=== PATIENT | male | born 1940 | race Caucasian/White ===

== ENCOUNTER 2016-11-25 13:47 | Outpatient (CLI) | payer MEDICARE, OTHER | END 2016-11-25 13:48 | disposition home or self-care (01) | DX: I10 Essential (primary) hypertension (principal); E11.22 Type 2 diabetes mellitus with diabetic chronic kidney disease; E78.5 Hyperlipidemia, unspecified ==

== ENCOUNTER 2017-02-16 13:58 | Outpatient (CLI) | payer MEDICARE, OTHER ==
[2017-02-16 17:59] LABS: CALCIUM 10.2 mg/dL (8.5-10.3); CREATININE 1.3 mg/dL (0.6-1.2)
[2017-02-16 18:22] LABS: HEMOGLOBIN A1C 0.7 g/dL
== END 2017-02-16 13:59 | disposition home or self-care (01) ==
LOC: LAB.F 13:58
PROVIDERS: ATTEND Internal Medicine
DX: E11.40 Type 2 diabetes mellitus with diabetic neuropathy, unspecified (principal); I10 Essential (primary) hypertension
CPT/HCPCS: 36415; 80048; 83036

== ENCOUNTER 2017-06-22 14:27 | Outpatient (CLI) | payer MEDICARE, OTHER ==
[2017-06-22 18:08] LABS: HEMOGLOBIN A1C 0.63 g/dL
[2017-06-22 18:11] LABS: CALCIUM 9.3 mg/dL (8.5-10.3); CREATININE 1.3 mg/dL (0.6-1.2); POTASSIUM 3.5 mmol/L (3.5-5.0)
== END 2017-06-22 14:28 | disposition home or self-care (01) ==
LOC: LAB.F 14:27
PROVIDERS: ATTEND Internal Medicine
DX: E11.40 Type 2 diabetes mellitus with diabetic neuropathy, unspecified (principal); N18.3 Chronic kidney disease, stage 3 (moderate)
CPT/HCPCS: 36415; 80048; 82043; 82570; 83036

== ENCOUNTER 2017-12-10 08:43 | Outpatient (CLI) | payer MEDICARE, OTHER ==
[2017-12-10 18:12] LABS: ALBUMIN 4.3 g/dL (3.2-5.5); ALKALINE PHOSPHATASE 40 IU/L (42-121); ALT ALANINE AMINOTRANSFERASE 14 IU/L (10-60); AST ASPARTATE AMINOTRANSFERASE 19 IU/L (10-42); BILIRUBIN,TOTAL 0.7 mg/dL (0.2-1.0); BUN - BLOOD UREA NITROGEN 24 mg/dL (6-20); CALCIUM 9.3 mg/dL (8.5-10.3); CARBON DIOXIDE - CO2 25 mmol/L (21-32); CHLORIDE 103 mmol/L (101-111); CHOL/HDL RATIO 2.6 (<5.0); CHOLESTEROL 126 mg/dL; CREATININE 1.4 mg/dL (0.6-1.2); GFR - MDRD 49 (>89); GLUCOSE 165 mg/dL (70-100); HDL CHOLESTEROL 49 mg/dL; LDL CHOLESTEROL,CALCULATED 63 mg/dL; LDL/HDL RATIO 1.3 (<3.6); SODIUM 137 mmol/L (135-145); TOTAL PROTEIN 6.5 g/dL (6.7-8.2); VLDL CHOLESTEROL 14 mg/dL
[2017-12-10 18:37] LABS: HB2 TOTAL 15.3 g/dL; HEMOGLOBIN A1C 0.66 g/dL; HEMOGLOBIN A1C % 6.1 % (4.6-6.2)
== END 2017-12-10 08:44 | disposition home or self-care (01) ==
LOC: LAB.F 08:43
PROVIDERS: ATTEND Physician Assistant Medical
DX: I12.9 Hypertensive chronic kidney disease with stage 1 through stage 4 chronic kidney disease, or unspecified chronic kidney disease (principal); N18.3 Chronic kidney disease, stage 3 (moderate); E78.00 Pure hypercholesterolemia, unspecified; E11.40 Type 2 diabetes mellitus with diabetic neuropathy, unspecified; E11.22 Type 2 diabetes mellitus with diabetic chronic kidney disease
CPT/HCPCS: 36415; 80053; 80061; 83036; 83721

== ENCOUNTER 2017-12-14 08:00 | Outpatient (CLI) | payer MEDICARE, OTHER ==
[2017-12-14 17:53] LABS: CREATININE,URINE 81.8 mg/dL; MICROALBUM/CREATININE RATIO,UR 30.6 ug/mg (<30.0); MICROALBUMIN,URINE 2.5 mg/dL (0-300.0)
== END 2017-12-14 08:01 | disposition home or self-care (01) ==
LOC: LAB.R 08:00
PROVIDERS: ATTEND Physician Assistant Medical
DX: E11.22 Type 2 diabetes mellitus with diabetic chronic kidney disease (principal)
CPT/HCPCS: 82043; 82570

== ENCOUNTER 2018-07-18 09:16 | Outpatient (CLI) | payer MEDICARE, OTHER ==
[2018-07-18 18:12] LABS: CALCIUM 9.6 mg/dL (8.5-10.3); CREATININE 1.3 mg/dL (0.6-1.2)
[2018-07-18 18:47] LABS: HB2 TOTAL 15.4 g/dL; HEMOGLOBIN A1C 0.66 g/dL; HEMOGLOBIN A1C % 6.1 % (4.6-6.2)
== END 2018-07-18 09:17 | disposition home or self-care (01) ==
LOC: LAB.F 09:16
PROVIDERS: ATTEND Physician Assistant Medical
DX: E11.40 Type 2 diabetes mellitus with diabetic neuropathy, unspecified (principal)
CPT/HCPCS: 36415; 80048; 83036

== ENCOUNTER 2019-01-26 08:06 | Outpatient (CLI) | payer MEDICARE ==
[2019-01-26 11:39] LABS: ALBUMIN 4.1 g/dL (3.2-5.5); ALBUMIN/GLOBULIN RATIO 1.7 (1.0-2.2); BILIRUBIN,TOTAL 1.1 mg/dL (0.2-1.0); CALCIUM 8.9 mg/dL (8.5-10.3); CREATININE 1.2 mg/dL (0.6-1.2); TOTAL PROTEIN 6.5 g/dL (6.7-8.2)
[2019-01-26 11:40] LABS: BASOPHILS % (AUTO) 0.8 %; EOSINOPHILS # (AUTO) 0.1 10^3/uL (0.0-0.7); EOSINOPHILS % (AUTO) 2.4 %; HGB - HEMOGLOBIN 14.4 g/dL (14.0-18.0); LYMPHOCYTES # (AUTO) 0.8 10^3/uL (1.5-3.5); LYMPHOCYTES % (AUTO) 20.8 %; MEAN CORPUSCULAR HGB CONC 34.1 g/dL (32.0-36.0); MEAN CORPUSCULAR VOLUME 93.9 fL (80.0-94.0); MEAN PLATELET VOLUME 9.3 fL (7.4-11.4); MONOCYTES # (AUTO) 0.4 10^3/uL (0.0-1.0); MONOCYTES % (AUTO) 9.7 %; NEUTROPHILS # (AUTO) 2.6 10^3/uL (1.5-6.6); NEUTROPHILS % (AUTO) 66.3 %; PLT - PLATELET COUNT 170 10^3/uL (130-450); RED BLOOD COUNT 4.49 10^6/uL (4.70-6.10); RED CELL DISTRIBUTION WIDTH 13.3 % (12.0-15.0)
== END 2019-01-26 08:07 | disposition home or self-care (01) ==
LOC: LAB.F 08:06
PROVIDERS: ATTEND Physician Assistant Medical
DX: R25.2 Cramp and spasm (principal); Z51.81 Encounter for therapeutic drug level monitoring
CPT/HCPCS: 36415; 80053; 83735; 85025

== ENCOUNTER 2019-01-27 13:49 | Outpatient (CLI) | payer MEDICARE ==
--- NOTE | 2019-01-27 15:22 | XRAY Report ---
Reason: BACK PAIN,LUMBAR,W/RADICULOPATHY Procedure Date: 01/27/2019 Accession Number: [id number] / [id number] Procedure: XR - Lumbar Spine Complete CPT Code: FULL RESULT: EXAM: LUMBOSACRAL SPINE RADIOGRAPHY EXAM DATE: 01/27/2019 02:50 PM. CLINICAL HISTORY: Lumbar back pain with radiculopathy. COMPARISONS: None. TECHNIQUE: 2 views. FINDINGS: Alignment: There are 5 mm of anterolisthesis of L4-L5. No significant scoliosis. Bones: Five [id number]-[id number] lumbar vertebral bodies are present. No fractures or bone lesions. Disks: There are mild endplate changes at L2-L3 and minimal endplate changes at L3-L4. Facets: Moderate facet arthropathy is seen predominantly at L4 and L5. Sacroiliac Joints: Unremarkable. Soft Tissues: Atherosclerotic disease of the aortoiliac vessels is noted. IMPRESSION: Anterolisthesis of L4 on L5 with degenerative changes. Atherosclerotic disease. RADIA
== END 2019-01-27 13:50 | disposition home or self-care (01) ==
LOC: DI 13:49
PROVIDERS: ATTEND Physician Assistant Medical
DX: M51.36 Other intervertebral disc degeneration, lumbar region (principal); M47.9 Spondylosis, unspecified; M43.16 Spondylolisthesis, lumbar region; I70.0 Atherosclerosis of aorta
CPT/HCPCS: 72110

== ENCOUNTER 2019-08-28 09:24 | Outpatient (CLI) | payer MEDICARE ==
[2019-08-28 17:43] LABS: BASOPHILS % (AUTO) 0.7 %; EOSINOPHILS # (AUTO) 0.1 10^3/uL (0.0-0.7); EOSINOPHILS % (AUTO) 2.4 %; LYMPHOCYTES # (AUTO) 1.1 10^3/uL (1.5-3.5); LYMPHOCYTES % (AUTO) 20.5 %; MEAN CORPUSCULAR HEMOGLOBIN 32.3 pg (27.0-31.0); MEAN CORPUSCULAR HGB CONC 33.4 g/dL (32.0-36.0); MEAN CORPUSCULAR VOLUME 96.5 fL (80.0-94.0); MONOCYTES # (AUTO) 0.6 10^3/uL (0.0-1.0); MONOCYTES % (AUTO) 11.7 %; NEUTROPHILS # (AUTO) 3.5 10^3/uL (1.5-6.6); NEUTROPHILS % (AUTO) 64.5 %; PLT - PLATELET COUNT 174 10^3/uL (130-450); RED BLOOD COUNT 4.34 10^6/uL (4.70-6.10); RED CELL DISTRIBUTION WIDTH 12.4 % (12.0-15.0); WHITE BLOOD COUNT 5.4 x10^3/uL (4.8-10.8)
[2019-08-28 18:35] LABS: ALBUMIN 4.3 g/dL (3.2-5.5); ALBUMIN/GLOBULIN RATIO 1.9 (1.0-2.2); ALKALINE PHOSPHATASE 41 IU/L (42-121); ALT ALANINE AMINOTRANSFERASE 18 IU/L (10-60); AST ASPARTATE AMINOTRANSFERASE 20 IU/L (10-42); BILIRUBIN,TOTAL 0.8 mg/dL (0.2-1.0); BUN - BLOOD UREA NITROGEN 24 mg/dL (6-20); CARBON DIOXIDE - CO2 27 mmol/L (21-32); CHLORIDE 101 mmol/L (101-111); CHOL/HDL RATIO 2.1 (<5.0); CHOLESTEROL 123 mg/dL; CREATININE 1.4 mg/dL (0.6-1.2); GFR - MDRD 49 (>89); GLUCOSE 148 mg/dL (70-100); HDL CHOLESTEROL 60 mg/dL; SODIUM 138 mmol/L (135-145); TOTAL PROTEIN 6.6 g/dL (6.7-8.2)
== END 2019-08-28 09:25 | disposition home or self-care (01) ==
LOC: LAB.S 09:24
PROVIDERS: ATTEND Physician Assistant Medical
DX: E11.22 Type 2 diabetes mellitus with diabetic chronic kidney disease (principal); I12.9 Hypertensive chronic kidney disease with stage 1 through stage 4 chronic kidney disease, or unspecified chronic kidney disease; N18.9 Chronic kidney disease, unspecified; E78.00 Pure hypercholesterolemia, unspecified
CPT/HCPCS: 36415; 80053; 80061; 83721; 85025

== ENCOUNTER 2019-09-19 14:20 | Outpatient (CLI) | payer MEDICARE ==
[2019-09-19 17:49] LABS: CREATININE,URINE 52.4 mg/dL; MICROALBUM/CREATININE RATIO,UR 74.4 ug/mg (<30.0); MICROALBUMIN,URINE 3.9 mg/dL (0-300.0)
[2019-09-19 17:56] LABS: BUN - BLOOD UREA NITROGEN 24 mg/dL (6-20); CALCIUM 9.6 mg/dL (8.5-10.3); CARBON DIOXIDE - CO2 26 mmol/L (21-32); CHLORIDE 96 mmol/L (101-111); CREATININE 1.2 mg/dL (0.6-1.2); GFR - MDRD 58 (>89); GLUCOSE 128 mg/dL (70-100); SODIUM 132 mmol/L (135-145)
[2019-09-19 17:57] LABS: CRP - C-REACTIVE PROTEIN < 1.0 mg/dL (0-1.0)
[2019-09-19 18:14] LABS: HB2 TOTAL 14.4 g/dL; HEMOGLOBIN A1C 0.63 g/dL; HEMOGLOBIN A1C % 6.2 % (4.6-6.2)
== END 2019-09-19 14:21 | disposition home or self-care (01) ==
LOC: LAB.S 14:20
PROVIDERS: ATTEND Physician Assistant Medical
DX: E11.22 Type 2 diabetes mellitus with diabetic chronic kidney disease (principal); N18.3 Chronic kidney disease, stage 3 (moderate); R25.2 Cramp and spasm; M54.16 Radiculopathy, lumbar region
CPT/HCPCS: 36415; 80048; 82043; 82570; 83036; 85651; 86140

== ENCOUNTER 2019-10-24 13:48 | Outpatient (CLI) | payer MEDICARE ==
[2019-10-24 18:11] LABS: MICROALBUMIN,URINE 2.6 mg/dL (0-300.0)
[2019-10-24 18:12] LABS: CALCIUM 9.1 mg/dL (8.5-10.3); CREATININE 1.2 mg/dL (0.6-1.2)
== END 2019-10-24 13:49 | disposition home or self-care (01) ==
LOC: LAB.S 13:48
PROVIDERS: ATTEND Physician Assistant Medical
DX: N18.3 Chronic kidney disease, stage 3 (moderate) (principal)
CPT/HCPCS: 36415; 80048; 82043; 82570

== ENCOUNTER 2019-11-23 15:34 | Outpatient (CLI) | payer MEDICARE ==
--- NOTE | 2019-12-05 11:14 | DEXA Report ---
Reason: WEDGE COMPRESSION FRACTURE OF UNSP LUMBAR VERTEBRA Procedure Date: 11/23/2019 Accession Number: [id number] / [id number] Procedure: DEX - Dexa Spine and/or Hip CPT Code: Final Report FULL RESULT: EXAM: Dexa Spine and/or Hip DATE: 11/23/2019 4:10 PM CLINICAL HISTORY: WEDGE COMPRESSION FRACTURE OF UNSP LUMBAR VERTEBRA TECHNIQUE: Dual energy x-ray absorptiometry (DXA) was performed on a [employer] System. Regions measured are the AP Spine, femoral neck, and if needed forearm. COMPARISON: None. In accordance with the International Society for Clinical Densitometry (ISCD) guidelines, data from previous exams may be reanalyzed using current recommendations and techniques. This is done to allow a more accurate basis for comparison with the current study. FINDINGS: The data for the lumbar spine is as follows: BMD (g/cm/cm) T-SCORE Z-SCORE REGION L1 1.283 1.0 1.3 L2 1.440 1.7 2.0 L3 1.404 1.4 1.7 L4 1.495 2.1 2.4 TOTAL 1.412 1.6 1.9 NOTE: All evaluable vertebrae are used for classification The data for the hip is as follows: BMD (g/cm/cm) T-SCORE Z-SCORE REGION Neck 1.089 0.1 1.4 TOTAL 1.239 1.0 1.9 NOTE: The femoral neck or total proximal femur, whichever is lowest, is used for classification. IMPRESSION: THE WHO CLASSIFICATION BASED ON THE INTERNATIONAL REFERENCE STANDARD IS NORMAL. THE FRACTURE RISK IS NOT INCREASED. RECOMMENDATION: Patients with diagnosis of osteoporosis or osteopenia should have regular bone mineral density assessment. For those eligible for Medicare, routine testing is allowed once every 2 years. Testing frequency can be increased for patients who have rapidly progressing disease or for those who are receiving medical therapy to restore bone mass. COMMENT: World Health Organization (WHO) definitions for osteoporosis and osteopenia: NORMAL BMD: T-score at -1.0 or higher, fracture risk is low OSTEOPENIA BMD: T-score between -1.0 and -2.5, fracture risk is increased. OSTEOPOROSIS BMD: T-score at -2.5 or lower, fracture risk is high. National Osteoporosis Foundation recommends: 1. Obtain adequate dietary calcium (at least 1200 mg per day) and vitamin D (400-800 international units per day). 2. Participate, as appropriate, in regular weightbearing and muscle-strengthening exercise. 3. Avoid tobacco use and reduce alcohol and caffeine intake. 4. For more detailed information see the website at www.NOF.org.
== END 2019-11-23 15:35 | disposition home or self-care (01) ==
LOC: DI 15:34
PROVIDERS: ATTEND Physician Assistant Medical
DX: S32.000A Wedge compression fracture of unspecified lumbar vertebra, initial encounter for closed fracture (principal)
CPT/HCPCS: 77080

== ENCOUNTER 2019-12-15 12:42 | Outpatient (CLI) | payer MEDICARE ==
--- NOTE | 2019-12-16 11:12 | XRAY Report ---
Reason: KNEE JOINT PAIN,GREATER THAN 3 MO,BILAT Procedure Date: 12/15/2019 Accession Number: [id number] / [id number] Procedure: XR - Knee 3 View BILAT CPT Code: Final Report FULL RESULT: EXAM: BILATERAL KNEE RADIOGRAPHY EXAM DATE: 12/15/2019 01:00 PM. CLINICAL HISTORY: Knee joint pain, greater than 3 mo, bilateral. COMPARISON: None available. TECHNIQUE: 3 views each knee. FINDINGS: Right: Bones: The bones appear intact without evidence of a fracture. Joints: Joint alignment is normal. No joint effusion. The joint spaces appear preserved. Minor degenerative spurring, mostly in the patellofemoral compartment. Soft Tissues: Vascular calcifications are present. No soft tissue swelling. Left: Bones: The bones appear intact without evidence of a fracture. Joints: There is a trace suprapatellar joint effusion. The joint spaces appear preserved. There is minor degenerative patellofemoral and medial compartment spurring. Normal joint alignment. Soft Tissues: Vascular calcifications are present. No soft tissue swelling. IMPRESSION: Minor degenerative changes in both knees. Right: Kellgren Caio Grade 1. Left: Kellgren Caio Grade 1. Kellgren and Caio classification of osteoarthritis: Grade 0: no radiographic features of osteoarthritis are present Grade 1: doubtful joint space narrowing (JSN) and possible osteophytic lipping Grade 2: definite osteophytes and possible JSN on anteroposterior weight-bearing radiograph Grade 3: multiple osteophytes, definite JSN, sclerosis, possible bony deformity Grade 4: large osteophytes, marked JSN, severe sclerosis and definite bony deformity RADIA
== END 2019-12-15 12:43 | disposition home or self-care (01) ==
LOC: DI 12:42
PROVIDERS: ATTEND Physician Assistant Medical
DX: M17.0 Bilateral primary osteoarthritis of knee (principal)

== ENCOUNTER 2020-09-10 08:44 | Outpatient (CLI) | payer MEDICARE ==
[2020-09-10 15:16] LABS: BASOPHILS % (AUTO) 0.7 %; EOSINOPHILS # (AUTO) 0.1 10^3/uL (0.0-0.7); EOSINOPHILS % (AUTO) 2.1 %; HGB - HEMOGLOBIN 12.6 g/dL (14.0-18.0); LYMPHOCYTES # (AUTO) 1.2 10^3/uL (1.5-3.5); LYMPHOCYTES % (AUTO) 26.6 %; MEAN CORPUSCULAR HEMOGLOBIN 32.6 pg (27.0-31.0); MEAN CORPUSCULAR HGB CONC 33.3 g/dL (32.0-36.0); MEAN CORPUSCULAR VOLUME 97.7 fL (80.0-94.0); MEAN PLATELET VOLUME 10.4 fL (7.4-11.4); MONOCYTES # (AUTO) 0.5 10^3/uL (0.0-1.0); MONOCYTES % (AUTO) 10.4 %; NEUTROPHILS # (AUTO) 2.6 10^3/uL (1.5-6.6); PLT - PLATELET COUNT 188 10^3/uL (130-450); RED BLOOD COUNT 3.87 10^6/uL (4.70-6.10); RED CELL DISTRIBUTION WIDTH 12.3 % (12.0-15.0); WHITE BLOOD COUNT 4.3 x10^3/uL (4.8-10.8)
[2020-09-10 15:41] LABS: ALBUMIN 4.1 g/dL (3.2-5.5); ALKALINE PHOSPHATASE 40 IU/L (42-121); ALT ALANINE AMINOTRANSFERASE 14 IU/L (10-60); AST ASPARTATE AMINOTRANSFERASE 17 IU/L (10-42); BILIRUBIN,TOTAL 0.8 mg/dL (0.2-1.0); BUN - BLOOD UREA NITROGEN 25 mg/dL (6-20); CALCIUM 9.4 mg/dL (8.5-10.3); CARBON DIOXIDE - CO2 26 mmol/L (21-32); CHLORIDE 97 mmol/L (101-111); CHOLESTEROL 212 mg/dL; CREATININE 1.4 mg/dL (0.6-1.2); GLUCOSE 144 mg/dL (70-100); HDL CHOLESTEROL 53 mg/dL; LDL CHOLESTEROL,CALCULATED 148 mg/dL; LDL/HDL RATIO 2.8 (<3.6); SODIUM 131 mmol/L (135-145); TOTAL PROTEIN 6.1 g/dL (6.7-8.2); VLDL CHOLESTEROL 11 mg/dL
[2020-09-10 20:07] LABS: HEMOGLOBIN A1c% 5.8 % (4.27-6.07)
== END 2020-09-10 08:45 | disposition home or self-care (01) ==
LOC: LAB.S 08:44
PROVIDERS: ATTEND Registered Nurse
DX: I12.9 Hypertensive chronic kidney disease with stage 1 through stage 4 chronic kidney disease, or unspecified chronic kidney disease (principal); E78.00 Pure hypercholesterolemia, unspecified; E11.22 Type 2 diabetes mellitus with diabetic chronic kidney disease; N18.30 Chronic kidney disease, stage 3 unspecified
CPT/HCPCS: 36415; 80053; 80061; 83036; 83721; 84443; 85025

== ENCOUNTER 2021-12-05 08:30 | Outpatient (CLI) | payer MEDICARE ==
[2021-12-05 15:18] LABS: BASOPHILS % (AUTO) 0.6 %; EOSINOPHILS # (AUTO) 0.1 10^3/uL (0.0-0.7); EOSINOPHILS % (AUTO) 2.4 %; HCT - HEMATOCRIT 38.2 % (42.0-52.0); HGB - HEMOGLOBIN 13.2 g/dL (14.0-18.0); LYMPHOCYTES # (AUTO) 1.1 10^3/uL (1.5-3.5); LYMPHOCYTES % (AUTO) 22.9 %; MEAN CORPUSCULAR HEMOGLOBIN 32.5 pg (27.0-31.0); MEAN CORPUSCULAR HGB CONC 34.6 g/dL (32.0-36.0); MEAN CORPUSCULAR VOLUME 94.1 fL (80.0-94.0); MEAN PLATELET VOLUME 10.3 fL (7.4-11.4); MONOCYTES # (AUTO) 0.6 10^3/uL (0.0-1.0); MONOCYTES % (AUTO) 12.1 %; NEUTROPHILS # (AUTO) 3.1 10^3/uL (1.5-6.6); NEUTROPHILS % (AUTO) 61.8 %; PLT - PLATELET COUNT 204 10^3/uL (130-450); RED BLOOD COUNT 4.06 10^6/uL (4.70-6.10); RED CELL DISTRIBUTION WIDTH 11.7 % (12.0-15.0)
[2021-12-05 16:07] LABS: ALBUMIN 4.2 g/dL (3.2-5.5); ALBUMIN/GLOBULIN RATIO 1.8 (1.0-2.2); ALKALINE PHOSPHATASE 45 IU/L (42-121); ALT ALANINE AMINOTRANSFERASE 14 IU/L (10-60); AST ASPARTATE AMINOTRANSFERASE 17 IU/L (10-42); BILIRUBIN,TOTAL 0.7 mg/dL (0.2-1.0); BUN - BLOOD UREA NITROGEN 27 mg/dL (6-20); CALCIUM 9.3 mg/dL (8.5-10.3); CARBON DIOXIDE - CO2 27 mmol/L (21-32); CHLORIDE 95 mmol/L (101-111); CHOL/HDL RATIO 4.2 (<5.0); CHOLESTEROL 201 mg/dL; CREATININE 1.3 mg/dL (0.6-1.2); GFR - MDRD 53 (>89); GLUCOSE 129 mg/dL (70-100); HDL CHOLESTEROL 48 mg/dL; LDL CHOLESTEROL,CALCULATED 144 mg/dL; POTASSIUM 4.5 mmol/L (3.5-5.0); SODIUM 131 mmol/L (135-145); TOTAL PROTEIN 6.6 g/dL (6.7-8.2); TRIGLYCERIDES 46 mg/dL; VLDL CHOLESTEROL 9 mg/dL
[2021-12-05 16:14] LABS: THYROID STIMULATING HORMONE 1.81 uIU/mL (0.34-5.60)
[2021-12-05 16:28] LABS: CREATININE,URINE 177.8 mg/dL; MICROALBUM/CREATININE RATIO,UR 67.5 ug/mg (<30.0)
[2021-12-05 20:26] LABS: ESTIMATED AVERAGE GLUCOSE 114 mg/dL (70-100); HEMOGLOBIN A1c% 5.6 % (4.27-6.07)
== END 2021-12-05 08:31 | disposition home or self-care (01) ==
LOC: LAB.S 08:30
PROVIDERS: ATTEND Registered Nurse
DX: E11.22 Type 2 diabetes mellitus with diabetic chronic kidney disease (principal); I12.9 Hypertensive chronic kidney disease with stage 1 through stage 4 chronic kidney disease, or unspecified chronic kidney disease; N18.30 Chronic kidney disease, stage 3 unspecified; E11.39 Type 2 diabetes mellitus with other diabetic ophthalmic complication; E78.00 Pure hypercholesterolemia, unspecified; Z13.29 Encounter for screening for other suspected endocrine disorder
CPT/HCPCS: 36415; 80053; 80061; 82043; 82570; 83036; 83721; 84443; 85025

== ENCOUNTER 2021-12-18 12:39 | Outpatient (CLI) | payer MEDICARE ==
--- NOTE | 2021-12-18 13:44 | XRAY Report ---
PROCEDURE: Tib/Fib LT INDICATIONS: LEFT LOWER LEG PAIN TECHNIQUE: 4 views of the tibia and fibula were acquired. COMPARISON: None FINDINGS: Bones: No fractures or dislocations. Osteoarthritic changes in left knee joints are seen. No suspic ious bony lesions. Soft tissues: No suspicious soft tissue calcifications or masses. IMPRESSION: No lower leg fracture or dislocation. No gross soft tissue abnormality. Left knee osteoarthritis. Reviewed by: Abelino Burt MD on 12/18/2021 1:43 PM PDT Approved by: Abelino Burt MD on 12/18/2021 1:43 PM PDT Station ID: [id number]
== END 2021-12-18 22:35 | disposition home or self-care (01) ==
LOC: DI.S 12:39
PROVIDERS: ATTEND Emergency Medicine
DX: M17.12 Unilateral primary osteoarthritis, left knee (principal)

== ENCOUNTER 2021-12-30 14:37 | Outpatient (CLI) | payer MEDICARE ==
--- NOTE | 2021-12-31 17:13 | Ultrasound Report ---
PROCEDURE: Duplex Lwr Ext Arterial Bilat INDICATIONS: PAIN IN LEFT LOWER LEG TECHNIQUE: Color and pulse Doppler interrogation was performed of both lower extremity arterial systems, with im age documentation. COMPARISON: None FINDINGS: Right lower extremity: Common femoral artery: 65.5 cm/sec, with biphasic flow. Deep femoral artery: 32.6 cm/sec, with biphasic/triphasic flow. Proximal superficial femoral artery: 64.2 cm/sec, with biphasic flow. Mid superficial femoral artery: 76.4 cm/sec, with triphasic flow. Distal superficial femoral artery: 41.6 cm/sec, with biphasic flow. Popliteal artery: 73.2 cm/sec, with biphasic flow. Posterior tibial artery: 41.0 cm/sec, with biphasic flow. Anterior tibial artery/dorsalis pedis: 82.5/69.4 cm/sec, with biphasic flow. Hathaway-scale imaging description: Diffuse moderate to severe plaque. Left lower extremity: Common femoral artery: 73.6 cm/sec, with biphasic flow. Deep femoral artery: 43.5 cm/sec, with biphasic flow. Proximal superficial femoral artery: 55.5 cm/sec, with triphasic flow. Mid superficial femoral artery: 67.3 cm/sec, with biphasic flow. Distal superficial femoral artery: 34.9 cm/sec, with biphasic flow. Popliteal artery: 34.3 cm/sec, with biphasic flow. Posterior tibial artery: 67.1 cm/sec, with biphasic flow. Anterior tibial artery/dorsalis pedis: 81.5/82.6 cm/sec, with biphasic flow. Hathaway-scale imaging description: Diffuse moderate to severe plaque. IMPRESSION: Diffuse moderate to severe plaque in both lower extremities with no significant focal stenosis. Reviewed by: Saul Alas on 12/31/2021 5:12 PM PDT Approved by: Saul Alas on 12/31/2021 5:12 PM PDT Station ID: [id number]
== END 2021-12-30 14:38 | disposition home or self-care (01) ==
LOC: DI 14:37
PROVIDERS: ATTEND Emergency Medicine
DX: I70.203 Unspecified atherosclerosis of native arteries of extremities, bilateral legs (principal)
CPT/HCPCS: 93925

== ENCOUNTER 2022-06-22 14:09 | Outpatient (CLI) | payer MEDICARE ==
[2022-06-22 20:09] LABS: BASOPHILS % (AUTO) 0.4 %; EOSINOPHILS # (AUTO) 0.1 10^3/uL (0.0-0.7); EOSINOPHILS % (AUTO) 0.9 %; HCT - HEMATOCRIT 37.1 % (42.0-52.0); HGB - HEMOGLOBIN 12.6 g/dL (14.0-18.0); LYMPHOCYTES # (AUTO) 1.3 10^3/uL (1.5-3.5); LYMPHOCYTES % (AUTO) 19.6 %; MEAN CORPUSCULAR HEMOGLOBIN 32.5 pg (27.0-31.0); MEAN CORPUSCULAR VOLUME 95.6 fL (80.0-94.0); MEAN PLATELET VOLUME 9.9 fL (7.4-11.4); MONOCYTES # (AUTO) 0.6 10^3/uL (0.0-1.0); NEUTROPHILS # (AUTO) 4.7 10^3/uL (1.5-6.6); NEUTROPHILS % (AUTO) 69.8 %; PLT - PLATELET COUNT 244 10^3/uL (130-450); RED BLOOD COUNT 3.88 10^6/uL (4.70-6.10); RED CELL DISTRIBUTION WIDTH 12.3 % (12.0-15.0); WHITE BLOOD COUNT 6.7 x10^3/uL (4.8-10.8)
[2022-06-22 20:20] LABS: CALCIUM 9.8 mg/dL (8.5-10.3); CREATININE 1.4 mg/dL (0.6-1.2); POTASSIUM 3.9 mmol/L (3.5-5.0)
[2022-06-22 21:19] LABS: ESTIMATED AVERAGE GLUCOSE 108 mg/dL (70-100); HEMOGLOBIN A1c% 5.4 % (4.27-6.07)
== END 2022-06-22 14:10 | disposition home or self-care (01) ==
LOC: LAB.S 14:09
PROVIDERS: ATTEND Internal Medicine
DX: Z01.812 Encounter for preprocedural laboratory examination (principal); E11.39 Type 2 diabetes mellitus with other diabetic ophthalmic complication
CPT/HCPCS: 36415; 80048; 83036; 85025

== ENCOUNTER 2022-11-15 06:10 | Outpatient (CLI) | payer MEDICARE | END 2022-11-15 06:11 | disposition short-term general hospital (02) | LOC: EMS 06:10 | DX: K92.1 Melena (principal); R10.31 Right lower quadrant pain; R10.32 Left lower quadrant pain | CPT/HCPCS: A0425; A0429 ==

== ENCOUNTER 2022-11-27 08:50 | Outpatient (CLI) | payer MEDICARE ==
[2022-11-27 14:24] LABS: BASOPHILS # (AUTO) 0.1 10^3/uL (0.0-0.1); EOSINOPHILS # (AUTO) 0.1 10^3/uL (0.0-0.7); EOSINOPHILS % (AUTO) 1.9 %; HCT - HEMATOCRIT 31.3 % (42.0-52.0); HGB - HEMOGLOBIN 9.8 g/dL (14.0-18.0); LYMPHOCYTES # (AUTO) 1.1 10^3/uL (1.5-3.5); LYMPHOCYTES % (AUTO) 20.8 %; MEAN CORPUSCULAR HEMOGLOBIN 30.7 pg (27.0-31.0); MEAN CORPUSCULAR HGB CONC 31.3 g/dL (32.0-36.0); MEAN CORPUSCULAR VOLUME 98.1 fL (80.0-94.0); MEAN PLATELET VOLUME 10.8 fL (7.4-11.4); MONOCYTES # (AUTO) 0.5 10^3/uL (0.0-1.0); MONOCYTES % (AUTO) 9.4 %; NEUTROPHILS # (AUTO) 3.5 10^3/uL (1.5-6.6); NEUTROPHILS % (AUTO) 66.7 %; PLT - PLATELET COUNT 250 10^3/uL (130-450); RED BLOOD COUNT 3.19 10^6/uL (4.70-6.10); RED CELL DISTRIBUTION WIDTH 14.2 % (12.0-15.0); WHITE BLOOD COUNT 5.2 x10^3/uL (4.8-10.8)
[2022-11-27 15:43] LABS: CALCIUM 8.7 mg/dL (8.5-10.3); CREATININE 1.1 mg/dL (0.6-1.2); POTASSIUM 4.1 mmol/L (3.5-5.0)
== END 2022-11-27 08:51 | disposition home or self-care (01) ==
LOC: LAB.S 08:50
PROVIDERS: ATTEND Registered Nurse
DX: K57.92 Diverticulitis of intestine, part unspecified, without perforation or abscess without bleeding (principal)
CPT/HCPCS: 36415; 80048; 85025

== ENCOUNTER 2022-12-14 11:36 | Outpatient (CLI) | payer MEDICARE ==
[2022-12-14] MEDS ORDERED: iohexoL-300 100 ML VIAL ONE (11:47)
[2022-12-14] MEDS ORDERED: iohexoL-300 100 ML VIAL IVP ONE (14:45)
--- NOTE | 2022-12-16 11:17 | CT Report ---
PROCEDURE: ABDOMEN W/WO INDICATIONS: CYST OF PANCREAS CONTRAST: 100ml Omnipaque 300 TECHNIQUE: 4 phase scanning was performed. After the administration of intravenous contrast, 5 mm thick section s acquired from the diaphragm to the symphysis. 5 mm coronal and sagittal reformats were acquired. For radiation dose reduction, the following was used: automated exposure control, adjustment of mA a nd/or kV according to patient size. COMPARISON: None. FINDINGS: Image quality: Excellent. Lung bases: Lung bases are clear. Heart size is normal. Pancreas: Cystic lesion in the pancreatic body/tail junction measuring 2 cm (3/39). No associated no dularity or pancreatic ductal dilation. Other solid organs: Gallbladder contains stones, but without wall thickening. Biliary system is non dilated. Pancreas is normal in morphology. Spleen is normal in size and enhancement. 1.9 cm left a drenal nodule with indeterminate attenuation. On the posterior margin of the left kidney, there is a complex appearing, exophytic cystic lesion measuring 2.9 cm (4/42). Punctate, nonobstructing stone in the inferior calyx of the left kidney. Nodes and vessels: No retroperitoneal or mesenteric adenopathy by size criteria. Aorta and inferior vena cava are normal in size. Bowel and peritoneum: Unenhanced bowel loops are normal in caliber. No free fluid or air. Bones: No suspicious bony lesions. No vertebral body compression fractures. Miscellaneous: No ventral hernias. 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 Six-month follow-up x4, then yearly follow-up x2 and q2y follow-up is recommended per ACR consensus guidelines. Alternat ively, GI referral for management or FNA can be considered. 2.Complex left-sided renal cystic lesion. While this did not have enhancement on comparison CTA, the presence of perceived internal complexity is mildly worrisome for a Bosniak 2F or 3 cystic mass. Furt her characterization with MRI is recommended. 3.1.9 cm left adrenal nodule with indeterminate attenuation. Signal characteristics can be evaluated with MRI. Reviewed by: Ruben Batista on 12/16/2022 11:16 AM PDT Approved by: Ruben Batista on 12/16/2022 11:16 AM PDT Station ID: [id number]
== END 2022-12-14 11:37 | disposition home or self-care (01) ==
LOC: DI 11:36
PROVIDERS: ATTEND Registered Nurse
DX: K86.2 Cyst of pancreas (principal); N28.9 Disorder of kidney and ureter, unspecified; E27.9 Disorder of adrenal gland, unspecified
CPT/HCPCS: 74170; Q9967

== ENCOUNTER 2023-07-04 17:55 | Outpatient (CLI) | payer MEDICARE | END 2023-07-04 17:56 | disposition EMS.NT | LOC: EMS 17:55 | DX: R19.7 Diarrhea, unspecified (principal); R10.31 Right lower quadrant pain; R10.32 Left lower quadrant pain ==

== ENCOUNTER 2023-07-19 15:24 | Outpatient (CLI) | payer MEDICARE ==
--- NOTE | 2023-07-19 20:06 | Ultrasound Report ---
PROCEDURE: Retroperitoneal INDICATIONS: RENAL MASS TECHNIQUE: Real-time scanning was performed of the retroperitoneal organs, with image documentation. COMPARISON: CT abdomen 06/28/2023 and 12/14/2022 FINDINGS: Kidneys: Kidneys are normal in size. Right kidney measures 10.8 cm long; left kidney measures 11.2 cm long. Right renal cortical thickness is 0.9 cm; left renal cortical thickness is 1.0 cm. No matt d masses, hydronephrosis, or nephrolithiasis. Multiple bilateral exophytic cysts are seen in the kid neys bilaterally. An exophytic cyst with thin septations is seen at the interpolar region of the left kidney measuring 2.9 x 2.5 x 2.8 cm, which appears to correspond with the previously described renal cystic lesion on CT. Bladder: Pre-void bladder volume is 93 mL. Post-void residual is 4 mL. Pre-void images demonstrate no intraluminal masses or stones. On pre-void images, bilateral ureteral jets are noted with color Doppler interrogation. (Of note, ureteral jets may not be detectable in up to 25% of cases due to in sufficient differences in specific gravity between ureteral and bladder urine). Miscellaneous: No free abdominal fluid. Prostate measures 5.8 x 4.2 x 4.5 cm. IMPRESSION: 1.Multiple bilateral exophytic renal cysts. A 2.9 cm cyst of the posterior interpolar region of the l eft kidney demonstrates a few thin septations without nodular components, and is considered benign. T his corresponds to the lesion described on prior CT from 06/28/2023 and 12/14/2022. The remaining renal cysts appear simple. 2.Enlarged prostate. Reviewed by: Igor Campuzano MD on 07/19/2023 8:04 PM PDT Approved by: Igor Campuzano MD on 07/19/2023 8:04 PM PDT Station ID: [id number]
== END 2023-07-19 15:25 | disposition home or self-care (01) ==
LOC: DI 15:24
PROVIDERS: ATTEND Registered Nurse
DX: N28.1 Cyst of kidney, acquired (principal); N40.0 Benign prostatic hyperplasia without lower urinary tract symptoms

== ENCOUNTER 2024-06-25 12:36 | Outpatient (CLI) | payer MEDICARE ==
--- NOTE | 2024-06-25 22:19 | Ultrasound Report ---
PROCEDURE: Pelvic Limited INDICATIONS: R INGUINAL PAIN TECHNIQUE: Real-time transabdominal scanning was performed of the pelvis, with image documentation. COMPARISON: CTA of abdomen and pelvis dated 11/15/2022. FINDINGS: Focused ultrasound examination of right lower quadrant at patient's reported area of bulging shows ri ght inguinal hernia with fat show defect measures 3.4 cm in width. Herniation sac contains bowel loop s and fat. The ureter is not fully reducible. Other: No free pelvic fluid. IMPRESSION: Partially reducible right inguinal hernia containing fat and bowel loops. Reviewed by: Abelino Silveira MD on 06/25/2024 10:18 PM PDT Approved by: Abelino Silveira MD on 06/25/2024 10:18 PM PDT Station ID: [id number]
== END 2024-06-25 12:37 | disposition home or self-care (01) ==
LOC: DI 12:36
PROVIDERS: ATTEND Registered Nurse
DX: K40.90 Unilateral inguinal hernia, without obstruction or gangrene, not specified as recurrent (principal)